=== PATIENT | female | born 1945 | race Caucasian/White ===

== ENCOUNTER 2019-09-17 11:42 | Emergency (ER) | payer MEDICARE, OTHER ==
[2019-09-17] MEDS ORDERED: Sodium Chloride 0.9% 500 ML IV SCH (12:15)
[2019-09-17] MEDS ORDERED: Sodium Chloride 0.9% 2.5 ML Syringe FLUSH PRN (12:15)
[2019-09-17] MEDS ORDERED: Sodium Chloride 0.9% 10 ML Syringe FLUSH PRN (12:15)
--- NOTE | 2019-09-17 12:20 | EDM.PDOC ---
ED HPI GENERAL MEDICAL PROBLEM - General Chief Complaint: Chest Pain Stated Complaint: PT FELL Time Seen by Provider: 09/17/19 12:01 Source of Information: Reports: Patient History Limitations: Reports: No Limitations - History of Present Illness INITIAL COMMENTS - FREE TEXT/NARRATIVE: This 74 year old female presents to the ED after falling at standing height striking the right side of her chest and upper right side of abdomen. She complains of right lateral chest wall pain with pain with deep breathing and movement. She also complains of pain in the right upper lateral abdomen. She denies any sub-sternal chest pain or SOB. No nausea or vomiting. She denies hitting her head when she fell hitting the concrete steps. She denies any other symptoms at this time. She states that she applied heat to the injured area last night. Onset: Other (yesterday) Location: Reports: Chest, Abdomen (as noted above) Severity: Mild (to moderate) right ribs, thigh, shoulder Pain Score (Numeric/FACES): 9 - Related Data Allergies Allergy/AdvReac Type Severity Reaction Status Date / Time No Known Allergies Allergy Verified 09/17/19 11:54 Home Meds: Home Meds Aspirin 81 mg PO DAILY 09/17/19 [History] Lisinopril/Hydrochlorothiazide [Lisinopril-Hctz 20-12.5 mg Tab] 1 tab PO DAILY 09/17/19 [History] PARoxetine [Paxil] 20 mg PO DAILY 09/17/19 [History] Past Medical History Cardiovascular History: Reports: Hypertension - Infectious Disease History Infectious Disease History: Reports: Chicken Pox - Past Surgical History GI Surgical History: Reports: Bariatric Procedure, Cholecystectomy Female Surgical History: Reports: Section Musculoskeletal Surgical History: Reports: Knee Replacement Social & Family History - Family History Family Medical History: Noncontributory - Tobacco Use Smoking Status *Q: Never Smoker - Recreational Drug Use Recreational Drug Use: No ED ROS GENERAL - Review of Systems Review Of Systems: See Below Constitutional: Reports: No Symptoms HEENT: Reports: No Symptoms Respiratory: Reports: No Symptoms Cardiovascular: Reports: Chest Pain (from fall involving the right lateral chest wall). Denies: Dyspnea on Exertion, Lightheadedness, Orthopnea Endocrine: Reports: No Symptoms GI/Abdominal: Reports: Abdominal Pain (right upper abdomen since her fall). Denies: Nausea, Vomiting : Reports: No Symptoms Musculoskeletal: Reports: Arm Pain (right upper arm pain especially with movement. She states that the forearm feels fine.) Skin: Reports: No Symptoms Neurological: Reports: No Symptoms ED EXAM, GENERAL - Physical Exam Exam: See Below Exam Limited By: No Limitations General Appearance: Alert, WD/WN, No Apparent Distress Eye Exam: Bilateral Eye: EOMI, Normal Inspection, PERRL Ears: Normal External Exam, Normal Canal, Hearing Grossly Normal, Normal TMs Ear Exam: Bilateral Ear: Auricle Normal, Canal Normal, TM normal Nose: Normal Inspection, Normal Mucosa, No Blood Throat/Mouth: Normal Inspection, Normal Lips, Normal Teeth, Normal Gums, Normal Oropharynx, Normal Voice, No Airway Compromise Head: Atraumatic, Normocephalic Neck: Normal Inspection, Supple, Non-Tender, Full Range of Motion Respiratory/Chest: No Respiratory Distress, Lungs Clear, Normal Breath Sounds, Other (tenderness noted over right laterl lower chest wall. No crepitus.). No : Splinting Cardiovascular: Normal Peripheral Pulses, Regular Rate, Rhythm, No Edema, No Gallop, No JVD, No Murmur Peripheral Pulses: 3+: Radial (L), Radial (R), Dorsalis Pedis (L), Dorsalis Pedis (R) GI/Abdominal: Normal Bowel Sounds, Soft (Tenderness in the right upper to lateral abdomen.), No Organomegaly, No Distention, No Mass. No: Guarding, Rebound (Female) Exam: Deferred Rectal (Female) Exam: Deferred Back Exam: Normal Inspection, Full Range of Motion Extremities: Arm Pain (right arm with movement in the upper arm. She denies any shoulder discomfort.). No: Qi's Sign Neurological: Alert, Oriented, CN II-XII Intact, Normal Cognition, Normal Gait, Normal Reflexes, No Motor/Sensory Deficits Skin Exam: Warm, Dry, Intact, Normal Color, No Rash Lymphatic: No Adenopathy Course - Vital Signs Text/Narrative:: I went over all of her diagnostic test in detail. She is feeling better at this time. She will be discharged. She and her agree with the discharge plan. Last Recorded V/S: Last Vital Signs Temp 97.8 F 09/17/19 13:35 Pulse 52 L 09/17/19 13:35 Resp 16 09/17/19 13:35 BP 130/41 L 02/29/20 13:35 Pulse Ox 98 09/17/19 13:35 - Orders/Labs/Meds Orders: Active Orders 24 hr Category Date Time Status Sodium Chloride 0.9% [Normal Saline] 500 ml Med 09/17/19 12:15 Active IV .BOLUS Sodium Chloride 0.9% [Saline Flush] Med 09/17/19 12:15 Active 10 ml FLUSH ASDIRECTED PRN Sodium Chloride 0.9% [Saline Flush] Med 09/17/19 12:15 Active 2.5 ml FLUSH ASDIRECTED PRN DME for Discharge [COMM] Stat Ot 09/17/19 14:05 Ordered Saline Lock Insert [OM.PC] Stat Ot 09/17/19 12:15 Ordered Medication Orders Sodium Chloride (Normal Saline) 500 mls @ 500 mls/hr IV .BOLUS MORRIS Last Admin: 09/17/19 12:28 Dose: 500 mls/hr Sodium Chloride (Saline Flush) 10 ml FLUSH ASDIRECTED PRN PRN Reason: Keep Vein Open Last Admin: 09/17/19 12:28 Dose: 10 ml Sodium Chloride (Saline Flush) 2.5 ml FLUSH ASDIRECTED PRN PRN Reason: Keep Vein Open Last Admin: 09/17/19 12:28 Dose: 2.5 ml Labs: Laboratory Tests 09/17/19 Range/Units 12:24 Sodium 141 (136-145) mmol/L Potassium 4.3 (3.5-5.1) mmol/L Chloride 104 (98-107) mmol/L Carbon Dioxide 27.5 (21.0-32.0) mmol/L BUN 40 H (7.0-18.0) mg/dL Creatinine 1.5 H (0.6-1.0) mg/dL Est Cr Clr Drug Dosing 24.35 mL/min Estimated GFR (MDRD) 34.1 ml/min Glucose 117 H (74-106) mg/dL Calcium 9.0 (8.5-10.1) mg/dL Meds: Medications Generic Name Dose Route Start Last Admin Trade Name Freq PRN Reason Stop Dose Admin Sodium Chloride 500 mls @ 500 mls/hr 09/17/19 12:15 09/17/19 12:28 Normal Saline IV 500 mls/hr .BOLUS MORRIS Administration Sodium Chloride 10 ml 09/17/19 12:15 09/17/19 12:28 Saline Flush FLUSH 10 ml ASDIRECTED PRN Administration Keep Vein Open Sodium Chloride 2.5 ml 09/17/19 12:15 09/17/19 12:28 Saline Flush FLUSH 2.5 ml ASDIRECTED PRN Administration Keep Vein Open Departure - Departure Time of Disposition: 14:12 Disposition: Home, Self-Care 01 Condition: Good Clinical Impression: Chest wall contusion Qualifiers: Encounter type: initial encounter Laterality: right Qualified Code(s): S20.211A - Contusion of right front wall of thorax, initial encounter Abdominal wall contusion Qualifiers: Encounter type: initial encounter Qualified Code(s): S30.1XXA - Contusion of abdominal wall, initial encounter Sprain of right shoulder Qualifiers: Encounter type: initial encounter Shoulder sprain type: unspecified sprain Qualified Code(s): S43.401A - Unspecified sprain of right shoulder joint, initial encounter - Discharge Information *PRESCRIPTION DRUG MONITORING PROGRAM REVIEWED*: Yes *COPY OF PRESCRIPTION DRUG MONITORING REPORT IN PATIENT CAREN: Yes Instructions: Chest Contusion, Adult, [id number], Contusion, [id number], Shoulder Sprain Referrals: PCP,None [Primary Care Provider] - Forms: ED Department Discharge Additional Instructions: Take your Aleve one to two tablets daily for pain. Cold compresses to the injured areas for the next two days (30 minutes on and one hour off while awake) . You can apply heat in the same fashion in 4-5 days. Use your sling for the next three to four days. Follow up with your PCP in the next two to four days. Rest for the next 24 hours. Return to the ED if your condition gets worse or should you have any questions or concerns. The following information is given to patients seen in the emergency department who are being discharged to home. This information is to outline your options for follow-up care. We provide all patients seen in our emergency department with a follow-up referral. The need for follow-up, as well as the timing and circumstances, are variable depending upon the specifics of your emergency department visit. If you don't have a primary care physician on staff, we will provide you with a referral. We always advise you to contact your personal physician following an emergency department visit to inform them of the circumstance of the visit and for follow-up with them and/or the need for any referrals to a consulting specialist. The emergency department will also refer you to a specialist when appropriate. This referral assures that you have the opportunity for follow-up care with a specialist. All of these measure are taken in an effort to provide you with optimal care, which includes your follow-up. Under all circumstances we always encourage you to contact your private physician who remains a resource for coordinating your care. When calling for follow-up care, please make the office aware that this follow-up is from your recent emergency room visit. If for any reason you are refused follow-up, please contact the [facility] Emergency Department at and asked to speak to the emergency department charge nurse. Sepsis Event Note - Evaluation Sepsis Screening Result: No Definite Risk - Focused Exam Vital Signs: Vital Signs Temp Pulse Resp BP Pulse Ox 09/17/19 13:35 97.8 F 52 L 16 130/41 L 98 09/17/19 11:51 97.4 F 73 18 146/62 H 98 Date Exam was Performed: 09/17/19 Time Exam was Performed: 14:10 - My Orders Last 24 Hours: My Active Orders 09/17/19 12:15 Sodium Chloride 0.9% [Normal Saline] 500 ml IV .BOLUS Sodium Chloride 0.9% [Saline Flush] 10 ml FLUSH ASDIRECTED PRN Sodium Chloride 0.9% [Saline Flush] 2.5 ml FLUSH ASDIRECTED PRN Saline Lock Insert [OM.PC] Stat 09/17/19 14:05 DME for Discharge [COMM] Stat - Assessment/Plan Last 24 Hours: My Active Orders 09/17/19 12:15 Sodium Chloride 0.9% [Normal Saline] 500 ml IV .BOLUS Sodium Chloride 0.9% [Saline Flush] 10 ml FLUSH ASDIRECTED PRN Sodium Chloride 0.9% [Saline Flush] 2.5 ml FLUSH ASDIRECTED PRN Saline Lock Insert [OM.PC] Stat 09/17/19 14:05 DME for Discharge [COMM] Stat
[2019-09-17 12:44] LABS: CARBON DIOXIDE,CO2 27.5 mmol/L (21.0-32.0); POTASSIUM,K 4.3 mmol/L (3.5-5.1)
--- NOTE | 2019-09-17 12:51 | CR ---
Right humerus: 2 views of the right humerus were obtained. Joint space narrowing is seen within the acromioclavicular joint. Findings within the elbow as noted on forearm exam. Glenohumeral joint is not well seen. No discrete fracture or other abnormality is seen. Impression: 1. Glenohumeral joint is poorly seen. If patient has shoulder symptoms, recommend formal shoulder exam with axillary view. 2. Other findings as noted above. Nothing acute is seen on this two-view exam. Diagnostic code #2 This report was dictated in [place] Standard Time
--- NOTE | 2019-09-17 12:51 | CR ---
Right forearm: 2 views of the right forearm were obtained. Comparison: No previous forearm study. Small spur is noted off the olecranon process at the attachment of the triceps tendon. 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 No acute fracture or other abnormality is seen. Impression: 1. Chronic findings as noted above. 2. Nothing acute is identified on 2 view right forearm exam. Diagnostic code #2 This report was dictated in [place] Standard Time
--- NOTE | 2019-09-17 13:38 | CT ---
CT chest Technique: Multiple axial sections were obtained through the chest from above the lung apices inferiorly through the lung bases. Intravenous contrast was utilized. Comparison: No prior chest imaging is available. Findings: No pericardial thickening or pericardial fluid is seen. Aorta shows no aneurysm. Pulmonary arteries are well-opacified with no proximal evidence of pulmonary embolism. No adenopathy is seen within the mediastinum. No axillary adenopathy is identified. Lungs are clear. No pleural effusions or pneumothorax is seen. Bone window settings shows scattered degenerative change within the spine with disc space narrowing and scattered endplate osteophytes. Nothing acute is appreciated within the spine. Reconstructed sagittal images of the sternum show no abnormality. Impression: 1. Nothing acute is appreciated on CT study of the chest. Diagnostic code #2 This report was dictated in [place] Standard Time
--- NOTE | 2019-09-17 13:38 | CT ---
CT abdomen and pelvis Technique: Multiple axial sections were obtained from above the dome of the diaphragm inferiorly through the pubic symphysis. Some portions of the lateral abdominal wall are not included on this exam. Comparison: No prior abdominal imaging is available. Findings: Liver contains no focal parenchymal abnormality. Spleen also shows no focal parenchymal abnormality. Previous stomach surgery is noted. Small hiatal hernia is noted. Adrenal glands show no nodule. Pancreas is within normal limits. Surgical clips are noted from prior cholecystectomy. Kidneys show symmetric contrast enhancement without hydronephrosis or mass. Aorta shows mild atherosclerotic calcification without aneurysm. No retroperitoneal adenopathy is seen. No mesenteric abnormalities are seen. No pelvic mass or adenopathy is noted. No free fluid or inflammatory change is seen within the abdomen or pelvis. Appendix is seen and appears normal in size. Bone window settings were reviewed which shows scattered endplate spurring within the spine. Degenerative apophyseal change is seen within the lower lumbar spine. Mild scoliosis is seen. No acute osseous finding is appreciated. Impression: 1. Nothing acute is appreciated on CT study of the abdomen and pelvis. 2. Other nonacute findings as noted above. Diagnostic code #2 This report was dictated in [place] Standard Time
--- NOTE | 2019-09-17 14:01 | CR ---
Right shoulder: 3 views of the right shoulder were obtained. Comparison: No previous shoulder study, previous humerus exam performed earlier on the same day (12:35 PM) Y scapular view shows slightly abnormal alignment of the humeral head in relation to the glenoid. Uncertain if this is due to dislocation or represents technique artifact. Axillary view as mentioned on the humerus study is still recommended. Joint space narrowing is noted within the acromioclavicular joint with inferior spurring. Osteopenia is noted. Impression: 1. Humeral head not optimally aligned with the glenoid on this view. Uncertain if this is due to dislocation or is positioning. As mentioned on humeral exam, axillary view is recommended which is the best view to evaluate for dislocation. 2. Degenerative change and osteopenia. Diagnostic code #9 This report was dictated in [place] Standard Time
[2019-09-17] MEDS ORDERED: Iopamidol 755 MG/ML 500 ML Multipack Bottle IVPUSH STA (15:22)
== END 2019-09-17 14:35 | disposition home or self-care (01) ==
LOC: MW.ED 11:42
DX: S43.401A Unspecified sprain of right shoulder joint, initial encounter (principal); S30.1XXA Contusion of abdominal wall, initial encounter; S20.211A Contusion of right front wall of thorax, initial encounter; I10 Essential (primary) hypertension; Z79.82 Long term (current) use of aspirin; Z79.899 Other long term (current) drug therapy; W17.89XA Other fall from one level to another, initial encounter
CPT/HCPCS: 71260; 73030; 73060; 73090; 74177; 80048; 96360; 99285; J7040; Q9967; 99283

== ENCOUNTER 2024-11-21 13:38 | Emergency (ER) | payer BC, MEDICARE, OTHER ==
[2024-11-21] MEDS ORDERED: Sodium Chloride 0.9% 2.5 ML Syringe FLUSH PRN (14:03)
[2024-11-21] MEDS ORDERED: Sodium Chloride 0.9% 10 ML Syringe FLUSH PRN (14:03)
[2024-11-21] MEDS: Orphenadrine 60 MG/2 ML Inj IV ONE (14:13)
[2024-11-21] MEDS: Ketorolac 30 MG/ML SDV IVPUSH ONE (14:13)
[2024-11-21 14:46] LABS: BASOPHILS ABSOLUTE AUTO 0.04 K/uL (0.00-0.20); BASOPHILS PERCENT AUTO 0.5 % (0.0-1.0); EOSINOPHILS ABSOLUTE AUTO 0.13 K/uL (0.00-0.45); EOSINOPHILS PERCENT AUTO 1.5 % (0.0-6.0); HEMATOCRIT 37.3 % (37.0-47.0); HEMOGLOBIN 12.1 g/dL (12.0-16.0); IMMATURE GRAN ABSOLUTE AUTO 0.02 K/uL (0.00-0.05); IMMATURE GRAN PERCENT AUTO 0.2 % (0.0-0.4); LYMPHOCYTES ABSOLUTE AUTO 1.52 K/uL (1.00-4.80); LYMPHOCYTES PERCENT AUTO 17.9 % (24.0-44.0); MEAN CORPUSCULAR HEMOGLOBIN 30.1 pg (28.0-32.0); MEAN CORPUSCULAR HGB CONC 32.4 g/dL (32.0-36.0); MEAN CORPUSCULAR VOLUME 92.8 fL (83.0-99.0); MEAN PLATELET VOLUME 10.9 fL (9.4-12.3); MONOCYTES ABSOLUTE AUTO 0.65 K/uL (0.00-0.80); MONOCYTES PERCENT AUTO 7.7 % (0.0-8.0); NEUTROPHILS ABSOLUTE AUTO 6.11 K/uL (1.80-7.70); NEUTROPHILS PERCENT AUTO 72.2 % (41.0-71.0); PLATELET COUNT,PLT 175 K/uL (150-400); RED BLOOD CELL COUNT 4.02 M/uL (4.10-5.30); WHITE BLOOD CELL COUNT,WBC 8.47 K/uL (3.9-11.3)
[2024-11-21 15:14] LABS: CALCIUM 8.7 mg/dL (8.5-10.1); CARBON DIOXIDE,CO2 23.3 mmol/L (21.0-32.0); CREATININE 1.3 mg/dL (0.6-1.0); EST CRCL DRUG DOSING (CG) 26.03 mL/min; POTASSIUM,K 4.3 mmol/L (3.5-5.1)
[2024-11-21 15:40] LABS: APPEARANCE,URINE CLEAR; BILIRUBIN,URINE NEGATIVE (NEGATIVE); COLOR,URINE YELLOW; GLUCOSE,URINE 100 mg/dL (NEGATIVE); KETONES,URINE NEGATIVE (NEGATIVE); LEUKOCYTE ESTERASE,URINE NEGATIVE (NEGATIVE); NITRITE,URINE POSITIVE (NEGATIVE); OCCULT BLOOD,URINE NEGATIVE (NEGATIVE); PROTEIN,URINE NEGATIVE (NEGATIVE)
[2024-11-21 16:20] LABS: BACTERIA,URINE RARE (NEGATIVE); EPITHELIAL CELLS,URINE FEW (NONE-FEW); RBC,URINE 0-1 (0-2/HPF); WBC,URINE NONE SEEN (0-5/HPF)
[2024-11-21] MEDS: cloNIDine 0.1 MG Tab PO ONE (16:57)
== END 2024-11-21 17:58 | disposition home or self-care (01) ==
LOC: MW.ED 13:38
DX: M62.830 Muscle spasm of back (principal); I10 Essential (primary) hypertension; Z90.49 Acquired absence of other specified parts of digestive tract; Z79.899 Other long term (current) drug therapy; Z79.82 Long term (current) use of aspirin
CPT/HCPCS: 36415; 80048; 81001; 84484; 85025; 93005; 96374; 96375; 99284; A9270; J1885; J2360